=== PATIENT | male | born 1955 | race Hispanic/Latino ===

== ENCOUNTER 2020-10-11 09:35 | Observation (INO) | payer SELFPAY ==
[2020-10-11] MEDS ORDERED: Ondansetron PF 4 MG/2 ML Vial ONE ×2 (10:17→13:36)
[2020-10-11 10:43] LABS: #Basophils 0.1 thou/uL (0.0-0.2); #Eosinphils 0.3 thou/uL (0.0-0.7); #Lymphocytes 1.5 thou/uL (1.20-3.40); #Monocytes 0.3 thou/uL (0.11-0.59); %Basophils 0.9 % (0.0-1.0); %Eosinophils 3.1 % (0.0-10.0); %Lymphocytes 14.3 % (21.0-51.0); %Monocytes 3.1 % (0.0-10.0); %Neutrophils 78.5 % (42.0-75.0); Hemoglobin 14.8 g/dL (14.0-18.0); Mean Corpuscular HGB CONC 32.6 g/dL (32.0-36.0); Mean Corpuscular Hemoglobin 28.9 pg (27.0-31.0); Mean Corpuscular Volume 88.6 fL (78.0-98.0); Mean Platelet Volume 7.9 fL (7.4-10.4); Platelet Count 307 thou/uL (130-400); RBC Distribution Width 12.2 % (11.5-14.5); Red Blood Cell (RBC) Count 5.11 mill/uL (4.70-6.10); White Blood Cell (WBC) Count 10.2 thou/uL (4.8-10.8)
[2020-10-11 10:56] LABS: ALT (SGPT) 23 U/L (8-55); AST (SGOT) 22 U/L (5-34); Albumin 3.7 g/dL (3.4-4.8); Alkaline Phosphatase 60 U/L (40-110); Anion Gap 16 mmol/L (10-20); BUN (Urea Nitrogen) 35 mg/dL (8.4-25.7); Bilirubin, Total 0.4 mg/dL (0.2-1.2); Calc. Creatinine Clearance 0 mL/min (70-130); Calcium 8.8 mg/dL (7.8-10.44); Carbon Dioxide 28 mmol/L (23-31); Chloride 101 mmol/L (98-107); Glucose 267 mg/dL (80-115); Lipase 99 U/L (8-78); Protein, Total 7.7 g/dL (5.8-8.1); Sodium 142 mmol/L (136-145)
[2020-10-11] MEDS ORDERED: Potassium Chloride 20 MEQ TAB ONE (11:11)
[2020-10-11 14:53] VITALS: BMI 34.8
[2020-10-11] MEDS ORDERED: Acetaminophen 325 MG TAB PO PRN (15:00)
[2020-10-11] MEDS ORDERED: Sodium Chloride 0.9% 1,000 ML IV SCH ×2 (15:00→17:45)
[2020-10-11] MEDS ORDERED: Ondansetron PF 4 MG/2 ML Vial IVP PRN (15:00)
[2020-10-11] MEDS ORDERED: Ondansetron ODT 4 MG TAB SL PRN (15:00)
[2020-10-11] MEDS ORDERED: Dextrose 50% Abboject 50 ML SYRINGE SLOW IVP PRN (16:27)
[2020-10-11] MEDS ORDERED: Dextrose 5% in Water 1,000 ML IV PRN (16:27)
[2020-10-11] MEDS ORDERED: HumaLOG 300 UNITS/3 ML VIAL SC PRN (16:27)
[2020-10-11] MEDS ORDERED: metFORMIN 500 MG TAB PO SCH (17:00)
[2020-10-11] MEDS ORDERED: Lantus 1000 UNITS/10 ML VIAL SC SCH (21:00)
[2020-10-11] MEDS ORDERED: Insulin Glargine 20 UNITS in Pre-Filled Syringe 1 EACH SC SCH (21:00)
[2020-10-11] MEDS ORDERED: Simvastatin 5 MG TAB PO SCH (21:00)
[2020-10-11] MEDS: Sodium Chloride 0.9% 1,000 ML IV SCH (21:36)
[2020-10-12 00:09] LABS: SARS-CoV-2 NAA Rapid Test Not Detected (NotDetected)
[2020-10-12] MEDS: Sodium Chloride 0.9% 1,000 ML IV SCH ×3 (04:23→11:03)
[2020-10-12 05:27] LABS: ALT (SGPT) 16 U/L (8-55); AST (SGOT) 14 U/L (5-34); Albumin 2.9 g/dL (3.4-4.8); Alkaline Phosphatase 45 U/L (40-110); Anion Gap 13 mmol/L (10-20); BUN (Urea Nitrogen) 28 mg/dL (8.4-25.7); Bilirubin, Total 0.3 mg/dL (0.2-1.2); Calc. Creatinine Clearance 50 mL/min (70-130); Calcium 7.7 mg/dL (7.8-10.44); Carbon Dioxide 26 mmol/L (23-31); Chloride 107 mmol/L (98-107); Globulin 3.1 g/dL (2.4-3.5); Glucose 101 mg/dL (80-115); Lipase 40 U/L (8-78); Sodium 143 mmol/L (136-145)
[2020-10-12] MEDS ORDERED: Potassium Chloride 20 MEQ TAB PO SCH (07:30)
[2020-10-12] MEDS ORDERED: Fenofibrate Nanocrystallized 145 MG TAB PO SCH (09:00)
[2020-10-12] MEDS ORDERED: Lantus 1000 UNITS/10 ML VIAL SC SCH (09:00)
[2020-10-12] MEDS ORDERED: Metoprolol Tartrate 25 MG TAB PO SCH (09:00)
[2020-10-12] MEDS ORDERED: Amlodipine 10 MG TAB PO SCH (09:00)
[2020-10-12] MEDS ORDERED: Lisinopril 20 MG TAB PO SCH (09:00)
[2020-10-12] MEDS ORDERED: Empagliflozin 10 MG TAB PO SCH (09:00)
[2020-10-12] MEDS ORDERED: Hydrochlorothiazide 25 MG TAB PO SCH (09:00)
[2020-10-12] MEDS ORDERED: Aspirin 81 mg Enteric Coated Tablet PO SCH (09:00)
[2020-10-12 13:27] LABS: Anion Gap 12 mmol/L (10-20); BUN (Urea Nitrogen) 27 mg/dL (8.4-25.7); Calc. Creatinine Clearance 48 mL/min (70-130); Calcium 7.9 mg/dL (7.8-10.44); Carbon Dioxide 28 mmol/L (23-31); Chloride 106 mmol/L (98-107); Glucose 265 mg/dL (80-115); Magnesium 1.8 mg/dL (1.6-2.6); Potassium 3.4 mmol/L (3.5-5.1); Sodium 143 mmol/L (136-145)
[2020-10-12 15:03] VITALS: BP 157/70; TEMP 98.5
== END 2020-10-12 15:00 | disposition home or self-care (01) ==
LOC: BURERS 09:35 → BURMED 13:06
PROVIDERS: ADMIT Family Medicine; ATTEND Family Medicine
DX: R11.10 Vomiting, unspecified (principal); N17.9 Acute kidney failure, unspecified; E87.6 Hypokalemia; R74.8 Abnormal levels of other serum enzymes; E11.9 Type 2 diabetes mellitus without complications; I10 Essential (primary) hypertension; E78.5 Hyperlipidemia, unspecified; Z79.4 Long term (current) use of insulin; Z79.82 Long term (current) use of aspirin; Z79.899 Other long term (current) drug therapy; Z20.822 Contact with and (suspected) exposure to COVID-19
CPT/HCPCS: 0241U; 36415; 36416; 70450; 80053; 83690; 83735; 85025; 93005; 96374; 96376; G0378; J1815; J2405; J7050

== ENCOUNTER 2021-12-24 18:17 | Outpatient (CLI) | payer OTHER | END 2021-12-24 18:18 | disposition home or self-care (01) | LOC: BURRAD 18:17 | PROVIDERS: ATTEND Family Medicine | DX: M79.671 Pain in right foot (principal) ==